=== PATIENT | male | born 1965 | race Caucasian/White ===

== ENCOUNTER → 2019-01-21 | Outpatient (CLI) | payer OTHER ==
--- NOTE | 2019-01-25 08:09 | ECHO ---
DATE OF PROCEDURE: 01/21/2019 Date of : 1965 Age: 53 REFERRING PROVIDER: Robin Randall PATIENT LOCATION: Outpatient. REASON FOR THE ECHOCARDIOGRAM: Dizziness, hypertension. 2D MEASUREMENTS: IVS: 1.1 cm LV: 4.4 cm LVPW: 1.2 cm LA: 3.7 cm Aorta 4.0 cm IVC: 2.2 cm DOPPLER MEASUREMENTS: Peak velocity across the aortic valve: 1.4 meters per second Peak velocity across the LVOT: 1.1 meters per second Mitral E: 0.88, Mitral A: 0.75 with a ratio of 1.2 Maximum tricuspid valve velocity: 2.3 meters per second 2D COMMENTS: 1. Normal left ventricular size, wall thickness, and normal global left ventricular systolic function. The estimated left ventricular systolic ejection fraction is 60-65%. 2. Normal left atrium. Normal right atrium and right ventricle. 3. The atrial septum appeared to be normal without evidence of defect or shunt. 4. Mildly dilated aortic root at 4.0 cm. 5. Trace pericardial effusion noted, no evidence of cardiac tamponade. 6. Aortic valve, mitral valve, tricuspid valve, and pulmonic valve appear to be normal. The proximal pulmonary artery branches were not well visualized. 7. The inferior vena cava was mildly enlarged, central venous pressure might be elevated. DOPPLER: It detects trace tricuspid regurgitation and trace pulmonic regurgitation. The calculated pulmonary artery systolic pressure is about 30 mmHg or less. Assessment of the left ventricular diastolic function appeared to be normal. IMPRESSION: 1. Normal global left ventricular systolic and diastolic function. 2. Trace tricuspid regurgitation. Pulmonary artery systolic pressure appeared to be normal. 3. Trace pulmonic regurgitation. 4. Trace pericardial effusion noted, no evidence of cardiac tamponade. 5. Isolated borderline enlarged left atrium at 4.0 cm. 6. The inferior vena cava (IVC) was mildly enlarged, central venous pressure might be elevated.
== END ==
LOC: M CARPUL 15:21
PROVIDERS: ATTEND Physician Assistant Medical
DX: R53.83 Other fatigue (principal); R42 Dizziness and giddiness; I10 Essential (primary) hypertension

== ENCOUNTER 2019-06-29 12:39 | Day surgery (SDC) | payer OTHER ==
[~2019-06-29] VITALS: Ht 182.9 cm; Wt 98.6 kg
[~2019-06-29 12:39] MED LIST: HYDR12.55 PO; LISI-1046 PO; propofoL 200 MG/20 ML VIAL As Ordered ONE
[2019-06-29] MEDS ORDERED: NS 1,000 ML IV ONE (14:00)
--- NOTE | 2019-06-29 14:01 | ROOR ---
Patient Name: Chinedu Britton Procedure Date: 06/29/2019 1:39 PM Date of : 1965 Age: 54 Room: [facility] Gender: Male Note Status: Finalized Procedure: Total Colonoscopy to Cecum + Biopsy Polypectomy + ileoscopy. Indications: Screening for colorectal malignant neoplasm Providers: Cipriano Garcia MD Referring MD: [facility], Admin. Requesting Provider: Medicines: Monitored Anesthesia Care Complications: No immediate complications. Procedure: Pre-Anesthesia Assessment: - The heart rate, respiratory rate, oxygen saturations, blood pressure, adequacy of pulmonary ventilation, and response to care were monitored throughout the procedure. The Colonoscope was introduced through the anus and advanced to the terminal ileum, with identification of the appendiceal orifice and IC valve. The colonoscopy was performed without difficulty. The patient tolerated the procedure well. The quality of the bowel preparation was excellent. Findings: The perianal and digital rectal examinations were normal. Internal hemorrhoids were found during retroflexion. The hemorrhoids were small. Scattered small-mouthed diverticula were found in the recto-sigmoid colon, sigmoid colon and descending colon. A small polyp was found at 45 cm proximal to the anus. The polyp was sessile. The polyp was removed with a cold biopsy forceps. Resection and retrieval were complete. No other significant abnormalities were identified in a careful examination of the remainder of the colon. The terminal ileum appeared normal. The exam was otherwise without abnormality. Impression: - Internal hemorrhoids. - Diverticulosis in the recto-sigmoid colon, in the sigmoid colon and in the descending colon. - One small polyp at 45 cm proximal to the anus, removed with a cold biopsy forceps. Resected and retrieved. - The examined portion of the ileum was normal. - The examination was otherwise normal. - The exam was otherwise normal to the cecum. Recommendation: - Patient has a contact number available for emergencies. The signs and symptoms of potential delayed complications were discussed with the patient. Return to normal activities tomorrow. Written discharge instructions were provided to the patient. - High fiber diet. - Discharge patient to home. - Continue present medications. - Await pathology results. - Telephone GI clinic for pathology results in 1 week. - Repeat colonoscopy in 5 years for surveillance. - Return to referring physician. - The findings and recommendations were discussed with the patient's family. Cipriano Garcia MD Cipriano Garcia MD 06/29/2019 2:00:45 PM Electronically signed by Cipriano Garcia MD Number of Addenda: 0 Note Initiated On: 06/29/2019 1:39 PM Estimated Blood Loss: Estimated blood loss: none.
[2019-06-29 14:20] VITALS: BP 114/74
== END 2019-06-29 14:31 | disposition home or self-care (01) ==
LOC: M OPP 12:39
PROVIDERS: ATTEND Internal Medicine Gastroenterology
DX: Z12.11 Encounter for screening for malignant neoplasm of colon (principal); D12.6 Benign neoplasm of colon, unspecified; K64.8 Other hemorrhoids; K57.30 Diverticulosis of large intestine without perforation or abscess without bleeding; I10 Essential (primary) hypertension; K21.9 Gastro-esophageal reflux disease without esophagitis; Z79.899 Other long term (current) drug therapy